=== PATIENT | female | born 1955 | race Two or more races ===

== ENCOUNTER 2017-10-16 21:39 | Outpatient (CLI) | payer OTHER ==
--- NOTE | 2017-10-17 09:48 | Diagnostic Imaging Report ---
Indication: Headache Technique: spiral acquisitions obtained through the brain. Angled axial and coronal 5 x 5 mm slices were reconstructed. No IV contrast utilized. Radiation dose was minimized using automated exposure control Total dose length product 1418.31 mGycm. CTDIvol(s) 70.38 mGy Comparison: none FINDINGS: No acute hemorrhage or edema. No mass effect or midline shift. There is minimal age-related enlargement of the ventricles and extra axial CSF spaces. There is minimal periventricular deep white matter ischemic change. Normal pena-white differentiation. Visualized orbits are unremarkable. Visualized sinuses are unremarkable. Intact calvarium. IMPRESSION: Chronic and age-related changes. Negative for acute intracranial bleed or mass effect This agrees with the preliminary interpretation provided overnight by [facility]. The CT scanner at [facility] is accredited by the [employer] and the scans are performed using protocols designed to limit radiation exposure to as low as reasonably achievable to attain images of sufficient resolution adequate for diagnostic evaluation
== END 2017-10-16 23:39 | disposition home or self-care (01) ==
LOC: RAD 21:39 → CAT 23:39
DX: R51 Headache (principal)
CPT/HCPCS: 70450